=== PATIENT | female | born 1995 ===

== ENCOUNTER 2023-03-10 20:17 | Inpatient (IN) | payer OTHER ==
[~2023-03-10] VITALS: Ht 160 cm; Wt 82.6 kg
[2023-03-10] MEDS ORDERED: PRENATAL TABLE1 EAC1 PO (20:57)
[2023-03-13] MEDS ORDERED: IBUPROFEN800 MG PO (08:01)
== END 2023-03-13 11:44 | disposition home or self-care (01) | DRG 788 ==
LOC: OB/GYN 20:17 → LDR 20:17 → O/R 22:16 → OB/GYN 23:31
PROVIDERS: ADMIT Specialist; ATTEND Specialist
PROC: 4A1HXCZ Monitoring of Products of Conception, Cardiac Rate, External Approach (ICD-10-PCS; 2023-03-10)
PROC: 10D00Z1 Extraction of Products of Conception, Low, Open Approach (ICD-10-PCS; principal; 2023-03-10 22:00)
DX: O34.211 Maternal care for low transverse scar from previous cesarean delivery (principal); Z3A.39 39 weeks gestation of pregnancy; Z37.0 Single live birth; Z20.822 Contact with and (suspected) exposure to COVID-19